=== PATIENT | female | born 1980 | race African-American/Black ===

== ENCOUNTER 2018-01-09 23:20 | Emergency (ER) | payer OTHER ==
[~2018-01-09] VITALS: Ht 167.6 cm; Wt 86.2 kg
[2018-01-09 23:40] VITALS: BP 151/104
[2018-01-10] MEDS ORDERED: methylPREDNISolone SOD SUCC 125 MG/2 ML VL IM ONE (00:30)
[2018-01-10] MEDS ORDERED: diphenhdrAMINE HCL 25 MG CAP PO ONE (00:30)
== END 2018-01-10 00:44 | disposition home or self-care (01) ==
LOC: ER 23:23
DX: T78.40XA Allergy, unspecified, initial encounter (principal); I10 Essential (primary) hypertension; Z88.0 Allergy status to penicillin
CPT/HCPCS: 96372; 99283; J2930